=== PATIENT | female | born 2000 | race Caucasian/White ===

== ENCOUNTER 2022-12-08 15:17 | Outpatient (REF) | payer OTHER, SELFPAY ==
[2022-12-08 15:38] LABS: MANUAL DIFF FLAG NO
[2022-12-08 18:10] LABS: Alanine Aminotransferase 14 U/L (0-31); Albumin Level 4.4 g/dL (3.5-5.0); Alkaline Phosphatase 54 U/L (39-117); Anion Gap 13 (12-20); Aspartate Amino Transferase 15 U/L (5-31); Bilirubin Total 0.3 mg/dL (0.0-1.0); Blood Urea Nitrogen 9 mg/dL (9-16); Calcium 10.1 mg/dL (8.4-10.2); Carbon Dioxide 29 mmol/L (22-29); Chloride 104 mmol/L (96-108); Estimated Glomerular Filt Rate > 60; Gamma Glutamyl Transpeptidase 10 U/L (7-33); Glucose Random 119 mg/dL (60-115); Potassium 4.5 mmol/L (3.3-5.1); Sodium 141 mmol/L (135-145); Total Protein 6.9 g/dL (6.5-8.0)
[2022-12-08 18:26] LABS: Basophils Absolute Auto 0.1 X10*3/uL (0.0-0.2); Basophils Percent Auto 0.7 % (0-2); Eosinophils Absolute Auto 0.3 X10*3/uL (0.0-0.4); Hemoglobin 13.6 g/dl (12.0-16.0); Imm Gran Abs Auto 0.03 X10*3/uL (0.00-0.03); Imm Gran Pct Auto 0.3 % (0.0-0.4); Lymphocytes Absolute Auto 1.8 X10*3/uL (1.2-4.9); Lymphocytes Percent Auto 17.6 % (20-40); Mean Corpuscular HGB Conc 32.4 g/dl (31.0-35.0); Mean Corpuscular Hemoglobin 28.1 pg (27.0-33.0); Mean Corpuscular Volume 86.8 fL (80.0-98.0); Mean Platelet Volume 9.9 fL (9.4-12.3); Monocytes Absolute Auto 0.5 X10*3/uL (0.1-1.2); Monocytes Percent Auto 4.6 % (2-11); Neutrophils Absolute Auto 7.4 x10*3/uL (2.0-8.3); Neutrophils Percent Auto 73.8 % (45-73); Platelet Count 378 X10*3/uL (160-400); Red Blood Count 4.84 X10*6/uL (4.20-5.50); Red Cell Distribution Width 14.6 % (11.0-16.0)
[2022-12-09 06:17] LABS: HBS Num1 0.08 mIU/mL (0-7.99); HBc Num1 0.11 S/CO (0.00-0.79); HBsAGNum1 0.28 S/CO (0.00-0.99); HIV AB/AG Nonreactive (Nonreactive); HIV Num 1 0.08 S/CO (0.00-0.99); Hepatitis B Core Antibody Nonreactive (Nonreactive); Hepatitis B Surface Antigen Negative (Negative); ~Hepatitis B Surface Antibody NONREACTIVE (Nonreactive); ~Hepatitis C Antibody Nonreactive (Nonreactive)
[2022-12-09 06:44] LABS: Hepatitis A Antibody IgG REACTIVE (Nonreactive); ~Hepatitis A Antibody IgG 11.26 S/CO (0.00-0.99)
[2022-12-12 14:48] LABS: HCV RNA PCR Qn <1.18 NOT DETECTED Log IU/mL (NOT DETECTED); HCV RNA PCR Qn <15 NOT DETECTED IU/mL (NOT DETECTED)
== END 2022-12-08 15:18 | disposition home or self-care (01) ==
LOC: HO.LAB 15:17
PROVIDERS: Visit Provider Physician Assistant
DX: Z11.4 Encounter for screening for human immunodeficiency virus [HIV] (principal); F11.20 Opioid dependence, uncomplicated
CPT/HCPCS: 36415; 80053; 82977; 85025; 86704; 86706; 86708; 86803; 87340; 87389; 87522; 87902

== ENCOUNTER 2023-08-04 11:30 | Outpatient (AMB) | payer OTHER, SELFPAY ==
[2023-08-04 11:32] VITALS: BP 110/62; PULSE 85; RESP 12; TEMP 36.4; O2SAT 99; BMI 19.7
--- NOTE | 2023-08-04 11:32 | MHC.PC.OV ---
Vital Signs 08/04/23 11:32 Height 5 ft 6 in Weight 122 lb 6 oz BMI 19.7 BP 110/62 Blood Pressure Location Lt brachial Position Sitting Respiration 12 Pulse 85 Pulse Source Pulse Oximeter Temp 97.5 F Temp Source Temporal Artery Scan Pulse Oximetry (%) 99 Oxygen Delivery Method Room Air Intake Visit Reasons: New patient, Requesting physical Intake Note: Patient states that when she was in [place] she was receiving treatment for opioid treatment and would need seraquel and prozac represcribed. 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 Accompanied by: Self / Same As Patient Allergies No Known Allergies Allergy (Verified 08/04/23 11:47) Medication List - Last Reviewed 08/04/23 by Kaylynn Mayorga MA buprenorphine-naloxone 12-3 mg (Suboxone) 12 mg sublingual DAILY fluoxetine 20 mg PO DAILY 30 days Tobacco use date assessed: 08/04/23 Dental Screening Dental Screen Date: 08/04/23 Did you have a dental visit in the last 12 months?: Yes Did you have a dental problem in the last 6 months where you did not have access to dental care?: No Was dental information given to patient?: Patient has dentist HPI HPI Comments History of Present Illness Details 23-year-old female presents to [facility] care. She notes she was last evaluated by her former PCP, Dr. Briones 2-3 years ago. She had CBC with diff and CMP blood work done done early this year; results were unremarkable. She reports past medical history significant for anxiety, depression, and PTSD. She is on fluoxetine and quetiapine. She states the medications were prescribed by a PCP in [place] in April 2023, she took the medications for 2 months and had no refill left. She has not been on medications since May. She requests refill of the medications. She notes she if followed by a therapist every week. She notes she has been on Suboxone 12 mg daily for opioids dependence for 1-2 years. She had a brief interruption and resumed taking the medication in April 2023. She states she started treatment with on-call addiction clinic in [place] in Mar, 2023 and has not used opioids since. She denies acute symptoms at this time. 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 1. Little interest or pleasure in doing things: more than half the days 2. Feeling down, depressed, or hopeless: several days 3. Trouble falling or staying asleep, or sleeping too much: nearly every day 4. Feeling tired or having little energy: nearly every day 5. Poor appetite or overeating: several days 6. Feeling bad about yourself - or that you are a failure or have let yourself or your family down: more than half the days 7. Trouble concentrating on things, such as reading the newspaper or watching television: more than half the days 8. Moving or speaking so slowly that other people could have noticed. Or the opposite - being so fidgety or restless that you have been moving around a lot more than usual: several days 9. Thoughts that you would be better off or of hurting yourself in some way: not at all Total score: 15 Depression Screening Interpretation: Positive Depression Screening Follow-up: Existing condition, In treatment and New Medication prescribed Source: Developed by Drs. John Leos, Luzma Sharif, Soren Santos and colleagues, with an educational raymond from [employer]. Thrive Questionnaire Date Thrive assessed: 08/04/23 I am a: Patient What is your living situation today?: I have a steady place to live Within the past 12 months, did the food you bought not last and you didn't have the money to get more?: Never true Within the past 12 months, did you worry whether your food would run out before you got money to buy more?: Never true Do you have trouble paying for medicines?: No Do you have trouble getting transportation to medical appointments?: No Do you have trouble paying your heating and electricity bill?: No Do you have trouble taking care of your child, family member or friend?: No Do you have trouble with day-to-day activities such as bathing, preparing meals, shopping, managing finances, etc.?: No Are you currently unemployed and looking for a job?: No Are you interested in more education?: No Please select the resources that you would like help with: Education Currently or been in a relationship where the following occur: no concerns reported AUDIT C Alcohol Use Questionnaire (AUDIT-C) 1. How often do you have a drink containing alcohol?: Monthly or less 2. How many drinks containing alcohol do you have on a typical day when you are drinking?: 1 or 2 3. How often do you have six or more drinks on one occasion?: Never Total Score: 1 MONICA-7 AMB Questionnaire MONICA-7 Date MONICA - 7 assessed: 08/04/23 Feeling nervous, anxious, or on edge: 2 = More than half the days Not being able to stop or control worryin = More than half the days Worrying too much about different things: 2 = More than half the days Trouble relaxin = Several days Being so restless that it is hard to sit still: 1 = Several days Becoming easily annoyed or irritable: 1 = Several days Feeling afraid as if something awful might happen: 1 = Several days Total MONICA-7 score (0-4 normal; 5-9 mild; 10-14 moderate; 15-21 severe): 10 Source: Developed by Drs. John Leos, Luzma Sharif, Soren Santos and colleagues, with an educational raymond from [employer]. Review of Systems Const Details: Const Denies chills, Denies fatigue, Denies fever(s), Denies headache(s) and Denies weakness ENT Denies dizziness and Denies headache(s) Card Denies chest pain, Denies lightheadedness, Denies dyspnea and Denies other (Palpitations) Resp Denies cough, Denies dyspnea, Denies wheezing and Denies other ( shortness of breath) GI Denies abdominal pain, Denies melena, Denies hematochezia, Denies change in bowel habits, Denies dyspepsia and Denies nausea Denies hematuria and Denies dysuria Musc Denies abnormal gait, Denies myalgias, Denies arthralgias, Denies numbness and Denies tingling Skin/Breast Denies rash, Denies unusual bruising and Denies wounds Neuro Denies abnormal gait, Denies dizziness, Denies headache(s), Denies memory loss, Denies numbness, Denies Sensory deficit (Neuro), Denies tingling and Denies weakness Psych Reports anxiety, Reports depression, Denies memory loss Endo Denies cold intolerance, Denies fatigue, Denies heat intolerance, Denies polydipsia and Denies polyuria Aller/Immun Denies wheezing Physical exam (Primary Care) Vital Signs: Last Vital Signs Temp 97.5 F 08/04/23 11:32 Pulse 85 08/04/23 11:32 Resp 12 08/04/23 11:32 BP 110/62 08/04/23 11:32 Pulse Ox 99 08/04/23 11:32 Oxygen Delivery Method Room Air 08/04/23 11:32 BMI result Body Mass Index 19.7 Tobacco/Smoking Status: Tobacco use Status Tobacco use date assessed 08/04/23 08/04/23 11:45 Patient Tobacco Use Status Never used Tobacco 08/04/23 11:45 e-Cigarette/Vaping Use Currently Using 08/04/23 11:45 PHQ-9: PHQ-9 Score PHQ-9: Total score 15 08/04/23 11:45 Depression Screening Interpretation: Positive Depression Screening Follow-up: Existing condition, In treatment and New Medication prescribed Thrive Assessment: Date of Thrive Assessment Date Thrive assessed 08/04/23 08/04/23 11:45 Currently or been in a relationship where the following occur: no concerns reported Const Other: General: no acute distress and well developed Nutritional Appearance: well nourished Orientation/consciousness: patient oriented x3 HENMT Head: Yes normocephalic and Yes atraumatic Eyes General: appearance normal, both eyes and all related structures Pupils: Equal, round and reactive pupils present EOM: EOMs intact bilaterally Resp Effort & Inspection: normal respiratory effort Auscultation: clear to auscultation bilaterally Cardio Rate: regular rate Rhythm: regular rhythm Heart sounds: S1 normal heart sound present, S2 normal heart sound present, no gallops, no murmurs and no rubs GI Palpation (GI): No Abdominal aortic bruit present, Soft to palpation, nontender, No hepatosplenomegaly present and No Rebound tenderness present Auscultation: normal bowel sounds General: Yes no CVA tenderness Back/Spine/Pelvis Back: no CVA tenderness Cervical Spine: cervical ROM normal and No Cervical spine tenderness Thoracic/Lumbar Spine: thoraco-lumbar ROM normal, No pain with thoraco-lumbar ROM, No thoracic spinal tenderness and No lumbar spinal tenderness Extrem General: Yes normal to inspection, No edema and No calf tenderness Skin General: warm and dry. Normal skin color. Normal skin turgor Lesions: no lesions Rashes: no rashes Trauma: no lacerations or abrasions Wounds: no wounds Nails: normal Neuro General: patient oriented x3, gait normal and no focal neuro deficit Cranial nerves: Yes Equal, round and reactive pupils present Cognition (Neuro): normal cognition Gait exam (Neuro): Normal gait present Sensory Exam: No Sensory deficit (Neuro) Psych Appearance: grossly normal Affect: normal affect Attitude: cooperative Thought process: Normal thought process present Assessment and Plan Assessment & Plan (1) Anxiety and depression: Code(s): F41.9 - Anxiety disorder, unspecified; F32.A - Depression, unspecified Plan: PHQ-9 and MONICA-7 scores revealed moderately severe depression and moderate anxiety respectively Continue follow-up with therapist Routine exercise encouraged Fluoxetine ordered. Take as prescribed Follow-up in 1 month or return sooner with worsening or new symptoms Verbalized understanding and agreed with treatment plan. (2) PTSD (post-traumatic stress disorder): Code(s): F43.10 - Post-traumatic stress disorder, unspecified Plan: As above (3) Laboratory tests ordered as part of a complete physical exam (CPE): Code(s): Z00.00 - Encounter for general adult medical examination without abnormal findings Plan: She had CBC and CMP done earlier this month; results were unremarkable. Fasting glucose, TSH/T4 and lipid panel ordered in preparation for physical exam. Advised to fast for at least 10 hours before getting labs drawn. May drink water Verbalized understanding and agreed with treatment plan. Orders: Orders UA CC w/rflx Micro + Cult Today Z00.00 - Encounter for general adult medical examination without abnormal findings Glucose Fasting Today Z00.00 - Encounter for general adult medical examination without abnormal findings Lipid Panel Today Z00.00 - Encounter for general adult medical examination without abnormal findings TSH reflex Free T4 Today Z00.00 - Encounter for general adult medical examination without abnormal findings Medications: New fluoxetine 20 mg PO DAILY 30 days 30 tabs 3RF buprenorphine-naloxone 12-3 mg (Suboxone) 12 mg sublingual DAILY Coding Level of Care Code New Pt Level 3 (34332) Diagnoses Anxiety and depression F41.9; F32.A PTSD (post-traumatic stress disorder) F43.10 Laboratory tests ordered as part of a complete physical exam (CPE) Z00.00
== END 2023-08-04 12:10 | disposition home or self-care (01) ==
PROVIDERS: PCP Nurse Practitioner Family; Visit Provider Nurse Practitioner Family
DX: F41.9 Anxiety disorder, unspecified (principal); F32.A Depression, unspecified; F43.10 Post-traumatic stress disorder, unspecified; Z00.00 Encounter for general adult medical examination without abnormal findings
CPT/HCPCS: 99203

== ENCOUNTER 2025-08-20 13:03 | Outpatient (AMB) | payer OTHER, SELFPAY ==
--- NOTE | 2025-08-20 13:16 | MHC.OFFWIV ---
Intake Vital Signs 08/20/25 13:21 Height 5 ft 6 in Weight 140 lb BMI 22.6 BP 114/70 Blood Pressure Location Rt brachial Position Sitting Pulse 75 Pulse Source Pulse Oximeter Temp 98.3 F Temp Source Oral Pulse Oximetry (%) 99 Oxygen Delivery Method Room Air Intake Visit Reasons: EP-EKG to upgrade medication Patient Tobacco Use Status: Never used Tobacco Allergies No Known Allergies Allergy (Verified 08/04/23 11:47) Do you need a note to return to daycare/school/sports/work: No HPI HPI Comments History of Present Illness Details History of Present Illness - The patient is a 25-year-old female presenting with a requirement for an electrocardiogram (EKG) to monitor QT interval due to methadone maintenance therapy. - The patient is on a methadone dose of 130 mg, which has been stable for a while. - An EKG is required to check the QT interval before any potential dose increase. - She has a letter from her prescriber asking for the EKG. - The patient has not experienced any symptoms such as lightheadedness, dizziness, syncope, palpitations, or dyspnea. Physical Exam General: Cooperative, healthy appearing, comfortable, no acute distress and well developed Orientation: Patient oriented x3 Limitations: No limitations Head: Normal to inspection Ears: Hearing grossly normal bilaterally Nose: Normal External nose present Face and sinus: Normal facial exam Eyes: Appearance normal, both eyes and all related structures Neck: Normal visual inspection and Yes full ROM Respiratory: Normal respiratory effort and able to speak in complete sentences. Skin: No rashes or lesions noted Neuro: Patient oriented x3 Extremities: Normal to inspection Review of Systems - Cardiovascular: Denies lightheadedness, dizziness, syncope, palpitations, or dyspnea. All systems reviewed and are unremarkable except as noted in HPI [facility] Medical History (Updated 08/20/25 @ 13:16 by Sarah Orozco PA-C) Anxiety and depression Psoriasis Surgical History (Updated 08/04/23 @ 11:48 by TAVO Cameron) No pertinent past surgical history Family History (Updated 08/04/23 @ 11:48 by TAVO Cameron) Father High blood pressure Social History Housing: House Patient Tobacco Use Status: Never used Tobacco e-Cigarette/Vaping Use: Currently Using service: No Current occupational status: employed Current occupation: Medical Assistant [employer] Cognitive needs: No Hearing needs: No Vision needs: No Physical Exam Vital Signs: Last Vital Signs Temp 98.3 F 08/20/25 13:21 Pulse 75 08/20/25 13:21 BP 114/70 08/20/25 13:21 Pulse Ox 99 08/20/25 13:21 Oxygen Delivery Method Room Air 08/20/25 13:21 BMI result Body Mass Index 22.6 Office Procedures EKG Details: NSR 72BPM [id number], Complete Assessment & Plan Assessment & Plan (1) Methadone use: Code(s): F11.90 - Opioid use, unspecified, uncomplicated Plan: Patient was informed and verbally consented to the use of an ambient scribe for clinic note documentation during this visit. Methadone Maintenance Therapy - Continue current methadone dose of 130 mg. - Performed electrocardiogram (EKG) to monitor QT interval. - Qt is 404, EKG has no acute changes and is NSR at 72BPM. Orders: Orders AMB EKG-In Office Today F11.90 - Opioid use, unspecified, uncomplicated Coding Level of Care Code Est Pt Level 3 (98540) Diagnoses Methadone use F11.90 CPT Codes EKG - CPT: 45124-[id number], Complete ([id number])
[2025-08-20 13:21] VITALS: BP 114/70; PULSE 75; TEMP 36.8; O2SAT 99; BMI 22.6
== END 2025-08-20 13:43 | disposition home or self-care (01) ==
PROVIDERS: PCP Nurse Practitioner Family; Visit Provider Physician Assistant
DX: F11.90 Opioid use, unspecified, uncomplicated (principal)

== ENCOUNTER → 2025-08-20 13:03 | Outpatient (BNVA) | payer OTHER, SELFPAY | PROVIDERS: PCP Nurse Practitioner Family; Visit Provider Physician Assistant | DX: F11.20 Opioid dependence, uncomplicated (principal) | CPT/HCPCS: 93005; 99212 ==